=== PATIENT | female | born 1985 | race Caucasian/White ===

== ENCOUNTER → 2018-12-01 15:00 | Outpatient (CLI) | payer BC, SELFPAY ==
[2018-12-01 12:21] VITALS: BMI 39.6
[2018-12-01 14:53] LABS: Bacteria 0 SEEN /hpf (None Seen); Mucous, Urine 0 SEEN /hpf (<or=2+); Red Blood Cells-Urine 0 SEEN /hpf (0-5); White Blood Cells 0 SEEN /hpf (0-5)
[2018-12-01 15:40] LABS: Color, Urine Yellow (Yellow); Glucose, Dipstick Normal (Normal); Ketone-Dipstick Negative (Negative); Leukocyte Esterase-Dipstick Negative /ul (Negative); Nitrite-Dipstick Negative (Negative); Occult Blood-Urine Negative /ul (Negative); Protein-Dipstick Negative (Negative); Specific Gravity, Urine 1.015 (1.002-1.030); Urine Bilirubin Dipstick Negative (Negative); Urine Clarity Clear (Clear); Urine Urobilinogen Normal (Normal)
[2018-12-01 15:56] LABS: Squamous Epithelial Cells - UA 0-5 SEEN /hpf (5-10)
== END ==
PROVIDERS: Referring Provider Physician Assistant Medical; Visit Provider Physician Assistant Medical
DX: R35.0 Frequency of micturition (principal)
CPT/HCPCS: 81001; 87086; 87088

== ENCOUNTER 2019-01-30 18:01 | Emergency (ER) | payer BC, SELFPAY ==
[2018-12-01 12:21] VITALS: BMI 39.6
[2019-01-30 18:02] VITALS: BP 164/100; PULSE 69; RESP 16; TEMP 36.8; O2SAT 97; BMI 39.4
--- NOTE | 2019-01-30 18:20 | ED.VISSUMM ---
- ER Visit Summary Date of Service: 01/30/19 Chief Complaint: [Back pain] History of Present Illness: The patient is a 33 F [since the emergency department back pain that started last evening. Patient states that it came on gradually. Patient was carrying some cases of water up some steps yesterday but otherwise cannot recall any injury or trauma to her back. Patient describes pain intermittently radiating down her right leg. Patient states that if she leans to the right side it seems to make the pain better. Standing up makes the pain worse. Patient denies any change in bowel bladder function. She denies any saddle anesthesia. She denies weakness in extremities. She denies urinary symptoms.] Denies fevers. She denies IV drug use. Physical Examination: [HEENT-PERRLA, EOMI. Cranial nerves II through XII grossly intact. TMs clear. Mucous membranes moist. No adenopathy. Cardiovascular-regular rate and rhythm without murmur or ectopy Lungs-clear to auscultation, chest wall stable without crepitus or subcu emphysema Abdomen-normoactive bowel sounds, soft, nontender, no rebound or rigidity, no peritoneal signs. Back exam-no real tenderness on exam of the thoracic or lumbar spine. No real tenderness over the paraspinal musculature. Patient does have a positive straight leg raise on the right with pain at about 45 degrees. Deep tendon reflexes are plus 1 out of 4 bilaterally at the patella and Achilles. Patient has normal 5 extension bilaterally. Patient has normal sensation to light touch Extremities-intact ?4, normal range of motion, normal pulses, atraumatic] Test Results: [None indicated] Emergency Department Course and Treatment: [He was medicated with Dilaudid, Toradol, Norflex.] Treatment Plan: [Be given a prescription for Naprosyn, Flexeril, and [place]. Patient advised to follow-up with primary care physician 5 to 7 days. Patient advised to return if worsening pain weakness the extremities change in bowel or bladder function, or conditions worsen anyway.] Disposition: [Discharged home stable condition.] Impression: [Lumbar radiculopathy] This note was generated with [employer] software. It may contain incorrect words, spelling, and punctuation that were not noted in review of the chart prior to signing ED Disposition - Plan for ED Patient: Referrals: Karen Bland MD [Primary Care Provider] -
--- NOTE | 2019-01-30 18:22 | DCINST.ED_ITS ---
ED Disposition - Plan for ED Patient: Instructions: BACK PAIN w/ SCIATICA Prescriptions: cycloBENZAPRine HCl [Flexeril] 10 mg PO TID PRN #20 tab PRN Reason: Muscle Spasm Prescription Printed Naproxen [Naprosyn] 500 mg PO BID PRN #20 tab Prescription Printed Hydrocodone Bitart/Apap 5-325 [[place] 5MG-325MG] 1 tab PO Q4H PRN PRN 2 Days #14 tab PRN Reason: Pain Prescription Printed Referrals: Karen Bland MD [Primary Care Provider] - 5-7 Days
[2019-01-30] MEDS: HYDROmorphone 1 MG/ML Syringe IM (18:38)
[2019-01-30] MEDS: Orphenadrine 60 MG/2 ML Ampul IM (18:38)
[2019-01-30] MEDS: Ketorolac 60 MG/2 ML Vial IM (18:38)
== END 2019-01-30 18:59 | disposition home or self-care (01) ==
LOC: ED 18:31
PROVIDERS: Emergency Provider Emergency Medicine; Family Provider Family Medicine; PCP Family Medicine
DX: M54.16 Radiculopathy, lumbar region (principal)
CPT/HCPCS: 96372; 99282

== ENCOUNTER → 2019-08-15 10:53 | Outpatient (CLI) | payer BC, SELFPAY ==
[2019-08-15 10:55] LABS: Mucous, Urine 0 SEEN /hpf (<or=2+)
[2019-08-15 12:21] LABS: Color, Urine Yellow (Yellow); Glucose, Dipstick Normal (Normal); Ketone-Dipstick Negative (Negative); Leukocyte Esterase-Dipstick 25 /ul (Negative); Nitrite-Dipstick Negative (Negative); Occult Blood-Urine 250 /ul (Negative); Protein-Dipstick Negative (Negative); Urine Bilirubin Dipstick Negative (Negative); Urine Clarity Sl. Cloudy (Clear); Urine Urobilinogen Normal (Normal)
[2019-08-15 12:44] LABS: ALB/GLOB Ratio 0.9 RATIO (0.9-2.4); AST(SGOT) 21 U/L (15-37); Alanine Aminotransfer ALT/SGPT 30 U/L (13-56); Albumin, Serum 3.8 g/dL (3.2-5.0); Alkaline Phosphatase 85 U/L (45-117); Anion Gap 4 (5-15); BUN 12 mg/dL (7-18); BUN/Creat Ratio 15.2 RATIO (10-20); Calcium,Total 8.8 mg/dL (8.5-10.1); Chloride 106 mmol/L (98-107); Creatinine, Serum 0.79 mg/dL (0.55-1.02); EST Glomerular Filtration Rate 90 mL/min (>60); Est Glom Filt Rate - Afr Amer 109 mL/min (>60); Globulin 4.2 g/dL (2.2-4.2); Glucose 79 mg/dL (74-106); Potassium 4.2 mmol/L (3.5-5.1); Sodium Level 139 mmol/L (136-145); Thyroid Stim Hormone (TSH) 1.84 uIU/mL (0.358-3.74)
[2019-08-15 12:55] LABS: Bacteria 1+ /hpf (None Seen); Red Blood Cells-Urine 25-50 SEEN /hpf (0-5); Squamous Epithelial Cells - UA 5-10 SEEN /hpf (5-10); White Blood Cells 0-5 SEEN /hpf (0-5)
== END ==
PROVIDERS: PCP Family Medicine; Referring Provider Family Medicine; Visit Provider Family Medicine
DX: I10 Essential (primary) hypertension (principal)
CPT/HCPCS: 36415; 80053; 81001; 84443; 87086; 87088